=== PATIENT | female | born 2000 | race Caucasian/White ===

== ENCOUNTER 2024-02-22 12:49 | Emergency (ER) | payer BC, SELFPAY ==
--- NOTE | 2024-02-22 13:59 | PC.NURSE ---
Pt called to triage--no answer
== END 2024-02-22 13:59 | disposition left against medical advice (07) ==
PROVIDERS: Emergency Provider Nurse Practitioner Family; PCP Family Medicine
DX: Z53.21 Procedure and treatment not carried out due to patient leaving prior to being seen by health care provider (principal)
CPT/HCPCS: 99199